=== PATIENT | female | born 1970 | race African-American/Black ===

== ENCOUNTER 2016-11-07 10:00 | Outpatient (RCR) | payer OTHER | END 2016-12-01 | disposition home or self-care (01) | LOC: PTY 10:00 | DX: Q66.89 Other specified congenital deformities of feet (principal); Z98.890 Other specified postprocedural states; Z47.89 Encounter for other orthopedic aftercare ==

== ENCOUNTER 2016-12-06 13:50 | Outpatient (RCR) | payer OTHER | END 2017-01-01 | disposition home or self-care (01) | LOC: PTY 13:50 | DX: Q66.89 Other specified congenital deformities of feet (principal); Z98.890 Other specified postprocedural states; Z47.89 Encounter for other orthopedic aftercare | CPT/HCPCS: 97035; 97110; 97140; G0283 ==